=== PATIENT | male | born 1995 | race Caucasian/White ===

== ENCOUNTER 2016-06-22 19:29 | Emergency (ER) | payer OTHER ==
[~2016-06-22] VITALS: Ht 177.8 cm; Wt 97.7 kg
[2016-06-22 19:52] VITALS: BP 147/83; PULSE 98; RESP 16; O2SAT 99
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
[2016-06-22] MEDS ORDERED: HYDROmorphone 1 mg/mL Inj IVPUSH PRN (20:30)
[2016-06-22] MEDS ORDERED: 0.9% Sodium Chloride 1,000 ML IV ONE (20:40)
--- NOTE | 2016-06-22 21:18 | DRSVH ---
PROCEDURE: CT CERVICAL SPINE WITHOUT CONTRAST ([id number]) INDICATIONS: traumatic injury TECHNIQUE: Noncontrast 3 mm thick sections acquired from the skull base to the T4 level. Sagittal and coronal r eformats were then constructed. For radiation dose reduction, the following was used: automated exp osure control, adjustment of mA and/or kV according to patient size. COMPARISON: None. FINDINGS: Image quality: Excellent. Bones: No fractures or dislocations. Visualized superior ribs are intact. Soft tissues: Prevertebral soft tissues are normal in thickness. No paravertebral hematomas. No ap ical pneumothoraces. IMPRESSION: No fracture or dislocation. Dictated by: Lili Singh M.D. on 06/22/2016 at 21:14 Approved by: Lili Singh M.D. on 06/22/2016 at 21:16
[2016-06-22 21:19] LABS: BASOPHILS % (AUTO) 0.1 % (0-3); EOSINOPHILS % (AUTO) 0.3 % (0-5); MONOCYTES % (AUTO) 10.3 % (4-12); Mean Corpuscular Hemoglobin 28.6 pg (27.0-35.0); Mean Corpuscular Volume 82.8 fL (81-100); NEUTROPHILS % (AUTO) 72.5 % (40-74); Platelet Count 224 bil/L (150-400)
--- NOTE | 2016-06-22 21:23 | DRSVH ---
PROCEDURE: CT CHEST WITH CONTRAST ([id number]) INDICATIONS: traumatic injury TECHNIQUE: After the administration of intravenous contrast, 5 mm thick sections acquired from the pulmonary api carito to the posterior costophrenic angles. 7 mm thick coronal and sagittal MIP reformats were acquire d. For radiation dose reduction, the following was used: automated exposure control, adjustment of mA and/or kV according to patient size. COMPARISON: None. FINDINGS: Image quality: Excellent. Lungs and pleura: No acute air space opacities. No pleural effusions or pneumothorax. Central and peripheral airways are patent and normal in caliber. Mediastinum: Heart size is normal. No pericardial effusion. No mediastinal hematoma. Soft tissue d ensity in the prevascular space is likely residual thymic tissue. No mediastinal or hilar adenopathy by size criteria. Thoracic aorta and central pulmonary arteries are normal in size. Esophagus is no rmal in caliber. No hiatal hernia. Bones and chest wall: No suspicious bony lesions. No vertebral body compression fractures. No axil soni or supraclavicular adenopathy by size criteria. Thyroid gland is not well seen. There is gynec omastia. Abdomen: Visualized upper abdominal solid organs appear normal. Upper abdominal bowel loops are nor mal in caliber. IMPRESSION: 1. No traumatic injuries identified. 2. Gynecomastia. Dictated by: Lili Singh M.D. on 06/22/2016 at 21:16 Approved by: Lili Singh M.D. on 06/22/2016 at 21:21
[2016-06-22] MEDS ORDERED: _HYDROcodone/APAP 5-325 mg Tablet PO PRN (21:45)
[2016-06-22 21:47] VITALS: BP 152/85; PULSE 99; RESP 14; O2SAT 98
[2016-06-22] MEDS ORDERED: HYDR-4003 PO (21:49)
== END 2016-06-22 22:30 | disposition home or self-care (01) ==
LOC: SED 19:29
DX: S29.019A Strain of muscle and tendon of unspecified wall of thorax, initial encounter (principal); S16.1XXA Strain of muscle, fascia and tendon at neck level, initial encounter; W18.09XA Striking against other object with subsequent fall, initial encounter; Y93.89 Activity, other specified; Y92.69 Other specified industrial and construction area as the place of occurrence of the external cause; Y99.0 Civilian activity done for income or pay
CPT/HCPCS: 71260; 72125; 80053; 85025; 96361; 96374; 96375; 99285; J1170; J1885; J7030; Q9967

== ENCOUNTER 2016-06-25 19:57 | Emergency (ER) | payer OTHER ==
[~2016-06-25] VITALS: Ht 177.8 cm; Wt 97.7 kg
[~2016-06-25 19:57] MED LIST: HYDR-4003 PO
[2016-06-25 20:03] VITALS: BP 153/82; PULSE 109; RESP 22; O2SAT 96
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
[2016-06-25] MEDS ORDERED: HYDROmorphone 0.5 mg/0.5 mL iSecure Syringe IVPUSH PRN (20:35)
--- NOTE | 2016-06-25 20:45 | DRSVH ---
PROCEDURE: X-RAY CHEST ONE VIEW, PORTABLE ([id number]) INDICATIONS: trauma, severe pain shortness of breath TECHNIQUE: One view of the chest was acquired. COMPARISON: None. FINDINGS: Surgical changes and devices: None. Lungs and pleura: No pleural effusions or pneumothorax. Lungs are clear. Mediastinum: Mediastinal contours appear normal. Heart size is normal. Bones and chest wall: No suspicious bony lesions. Overlying soft tissues appear unremarkable. IMPRESSION: No acute cardiopulmonary findings. Dictated by: Dayami Gillespie M.D. on 06/25/2016 at 20:44 Approved by: Dayami Gillespie M.D. on 06/25/2016 at 20:44
[2016-06-25 21:01] LABS: BASOPHILS % (AUTO) 0.1 % (0-3); EOSINOPHILS % (AUTO) 0.5 % (0-5); MONOCYTES % (AUTO) 6.1 % (4-12); Mean Corpuscular Hemoglobin 27.9 pg (27.0-35.0); Mean Corpuscular Volume 82.9 fL (81-100); NEUTROPHILS % (AUTO) 82.3 % (40-74); Platelet Count 182 bil/L (150-400)
[2016-06-25] MEDS ORDERED: _oxyCODONE/APAP 5-325 mg Tablet PO PRN (21:10)
[2016-06-25 21:29] LABS: TROPONIN T 0.01 ug/L (0.0-0.011)
[2016-06-25 22:15] VITALS: BP 128/78; PULSE 87; RESP 18; O2SAT 98
== END 2016-06-25 22:17 | disposition home or self-care (01) ==
LOC: SED 19:57
DX: S20.219A Contusion of unspecified front wall of thorax, initial encounter (principal); W22.8XXA Striking against or struck by other objects, initial encounter; Y93.89 Activity, other specified; Y92.69 Other specified industrial and construction area as the place of occurrence of the external cause; Y99.0 Civilian activity done for income or pay
CPT/HCPCS: 36415; 71010; 80053; 84484; 85025; 93005; 96374; 96375; 99285; J1170; J1885

== ENCOUNTER 2016-07-27 17:29 | Emergency (ER) | payer OTHER ==
[~2016-07-27] VITALS: Ht 177.8 cm; Wt 90.9 kg
[2016-07-27 17:33] VITALS: BP 141/73; PULSE 91; RESP 16; O2SAT 98
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
[2016-07-27] MEDS ORDERED: CYCL10TA9 PO (19:14)
[2016-07-27 19:20] VITALS: BP 141/73; PULSE 91; RESP 16; O2SAT 98
== END 2016-07-27 19:21 ==
LOC: SED 17:29
DX: S23.3XXA Sprain of ligaments of thoracic spine, initial encounter (principal); W22.8XXA Striking against or struck by other objects, initial encounter; Y93.89 Activity, other specified; Y99.0 Civilian activity done for income or pay; Y92.69 Other specified industrial and construction area as the place of occurrence of the external cause
CPT/HCPCS: 96372; 99283; J1885

== ENCOUNTER 2016-11-05 19:10 | Emergency (ER) | payer OTHER ==
[~2016-11-05] VITALS: Ht 177.8 cm; Wt 95.5 kg
[~2016-11-05 19:10] MED LIST changes: +CYCL10TA9 PO
[2016-11-05 19:11] VITALS: BP 148/75; PULSE 104; RESP 20; O2SAT 98
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
[2016-11-05 19:45] LABS: BASOPHILS % (AUTO) 0.2 % (0-3); EOSINOPHILS % (AUTO) 1.4 % (0-5); MONOCYTES % (AUTO) 6.7 % (4-12); Mean Corpuscular Hemoglobin 28.4 pg (27.0-35.0); Mean Corpuscular Volume 83.6 fL (81-100); NEUTROPHILS % (AUTO) 71.5 % (40-74); Platelet Count 290 bil/L (150-400)
[2016-11-05 20:17] LABS: Magnesium 2.1 mg/dL (1.6-2.6)
[2016-11-05 20:19] LABS: TROPONIN T < 0.010 ug/L (0.0-0.011)
--- NOTE | 2016-11-05 20:34 | DRSVH ---
PROCEDURE: X-RAY CHEST ONE VIEW, PORTABLE ([id number]) INDICATIONS: CHEST PAIN TECHNIQUE: One view of the chest was acquired. COMPARISON: [facility], CR, XR CHEST 1VW (PORTABLE), 06/25/2016, 20:11. FINDINGS: Surgical changes and devices: None. Lungs and pleura: No pleural effusions or pneumothorax. Lungs are clear. Mediastinum: Mediastinal contours appear normal. Heart size is normal. Bones and chest wall: No suspicious bony lesions. Overlying soft tissues appear unremarkable. IMPRESSION: 1. No acute cardiopulmonary disease. Dictated by: Nehemias Lockwood M.D. on 11/05/2016 at 20:30 Approved by: Nehemias Lockwood M.D. on 11/05/2016 at 20:31
[2016-11-05 21:38] VITALS: BP 145/51; PULSE 86; RESP 18; O2SAT 98
== END 2016-11-05 21:41 | disposition home or self-care (01) ==
LOC: SED 19:10
DX: R07.89 Other chest pain (principal); Z87.828 Personal history of other (healed) physical injury and trauma
CPT/HCPCS: 36415; 71010; 80053; 83690; 83735; 84484; 85025; 85378; 93005; 96374; 99285; J1885